=== PATIENT | male | born 1945 | race Caucasian/White ===

== ENCOUNTER 2020-11-23 13:11 | Emergency (ER) | payer MEDICARE, OTHER ==
[~2020-11-23 13:11] MED LIST: ACETAZOLAMIDE250 MG PO; AMIODARONE HCL200 MG PO; AMITIZA8 MCG PO; ASPIRIN EC81 MG PO; BUMEX 1MG TABLET1 MG PO; COLACE 100MG C100 MG PO; DIVALPROEX SOD125 M1 PO; ELIQUIS5 MG PO; FINASTERIDE5 MG PO; FLOMAX 0.4 MG0.4 MG PO; FLONASE 0.05% N16 GM; GABAPENTIN100 MG PO; HYDRALAZINE HC100 MG PO; IPRAT-ALBUT 0.5-3 ML INH; LEVAQUIN500 MG PO; LEVEMIR100 UNIT/1 SQ; LOPRESSOR 25 MG25 MG PO; METOPROLOL TART50 MG PO; NOVOLOG 10100 UNITS/ INJ; NOVOLOG 10100 UNITS/ SQ; OMNICEF 300 MG300 MG PO; PANTOPRAZOLE SO40 MG PO; POLYETHYLENE GL17 GM PO; ROPINIROLE HCL2 MG PO; TYLENOL 500 MG500 MG PO; TYLENOL WITH C1 EACH PO; VIREAD 300 MG300 MG PO; ZYRTEC10 MG PO
[2020-11-23 14:07] LABS: HEMOGLOBIN 8.9 gm/dl (14.0-17.5); RED BLOOD COUNT 3.63 M/UL (4.20-5.50); WHITE BLOOD COUNT 6.4 K/UL (4.5-11.0)
[2020-11-23 14:46] LABS: BUN/CREATININE RATIO 16 (0-10)
[2020-11-23] MEDS ORDERED: OMNICEF 300 MG300 MG PO (17:59)
[2021-05-12] MEDS ORDERED: OMNICEF 300 MG300 MG PO (17:09)
[2021-05-13] MEDS ORDERED: REQUIP5 MG PO (11:29)
[2021-05-13] MEDS ORDERED: DOCUSATE SODIU250 MG PO (11:33)
== END 2020-11-23 20:56 | disposition home or self-care (01) ==
LOC: ER1 13:11
PROVIDERS: Nurse Practitioner
DX: N20.1 Calculus of ureter (principal); N39.0 Urinary tract infection, site not specified; N28.89 Other specified disorders of kidney and ureter; R60.0 Localized edema; S41.111A Laceration without foreign body of right upper arm, initial encounter; I13.0 Hypertensive heart and chronic kidney disease with heart failure and stage 1 through stage 4 chronic kidney disease, or unspecified chronic kidney disease; E11.22 Type 2 diabetes mellitus with diabetic chronic kidney disease; N18.9 Chronic kidney disease, unspecified; I50.9 Heart failure, unspecified; J44.9 Chronic obstructive pulmonary disease, unspecified; I48.91 Unspecified atrial fibrillation; I25.2 Old myocardial infarction; Z79.82 Long term (current) use of aspirin; Z79.01 Long term (current) use of anticoagulants; Z86.19 Personal history of other infectious and parasitic diseases; X58.XXXA Exposure to other specified factors, initial encounter; Z20.822 Contact with and (suspected) exposure to COVID-19
CPT/HCPCS: 36415; 71045; 80053; 81001; 82550; 82553; 83605; 83690; 83735; 83880; 84484; 85025; 87040; 87077; 87086; 87186; 96374; 99285; J0696; U0002

== ENCOUNTER 2020-11-25 03:29 | Emergency (ER) | payer MEDICARE, OTHER ==
[2020-11-25 04:04] LABS: HEMOGLOBIN 8.9 gm/dl (14.0-17.5); RED BLOOD COUNT 3.63 M/UL (4.20-5.50); WHITE BLOOD COUNT 7.5 K/UL (4.5-11.0)
[2020-11-25 04:28] LABS: BUN/CREATININE RATIO 20 (0-10)
[2020-11-25] MEDS ORDERED: FLOMAX0.4 MG PO (06:21)
[2020-11-25] MEDS ORDERED: OMNICEF 300 MG300 MG PO (06:21)
[2021-05-12] MEDS ORDERED: OMNICEF 300 MG300 MG PO (17:09)
[2021-05-13] MEDS ORDERED: REQUIP5 MG PO (11:29)
[2021-05-13] MEDS ORDERED: DOCUSATE SODIU250 MG PO (11:33)
== END 2020-11-25 09:00 | disposition home or self-care (01) ==
LOC: ER1 03:29
PROVIDERS: Emergency Medicine
DX: N13.2 Hydronephrosis with renal and ureteral calculous obstruction (principal); J45.909 Unspecified asthma, uncomplicated; E11.9 Type 2 diabetes mellitus without complications; I48.91 Unspecified atrial fibrillation
CPT/HCPCS: 80053; 81001; 85025; 87040; 87086; 99284

== ENCOUNTER 2020-12-06 03:10 | Inpatient (IN) | payer MEDICARE, OTHER ==
[~2020-12-06] VITALS: Ht 175.3 cm; Wt 131.5 kg
[~2020-12-06 03:10] MED LIST changes: +FLOMAX0.4 MG PO
[2020-12-06 04:06] LABS: HEMOGLOBIN 8.2 gm/dl (14.0-17.5); RED BLOOD COUNT 3.38 M/UL (4.20-5.50); WHITE BLOOD COUNT 4.6 K/UL (4.5-11.0)
[2020-12-06 04:37] LABS: BUN/CREATININE RATIO 23 (0-10)
[2020-12-06] MEDS ORDERED: NORVASC5 MG PO (11:24)
[2020-12-06] MEDS ORDERED: ASPIRIN81 MG PO (11:26)
[2020-12-07 04:14] LABS: HEMOGLOBIN 8.4 gm/dl (14.0-17.5); RED BLOOD COUNT 3.46 M/UL (4.20-5.50)
[2020-12-07 04:15] LABS: WHITE BLOOD COUNT 6.4 K/UL (4.5-11.0)
[2020-12-08 07:51] LABS: HEMOGLOBIN 8.5 gm/dl (14.0-17.5); RED BLOOD COUNT 3.66 M/UL (4.20-5.50); WHITE BLOOD COUNT 10.9 K/UL (4.5-11.0)
[2020-12-09] MEDS ORDERED: NOVOLOG 10100 UNITS/ INJ (12:27)
[2020-12-09] MEDS ORDERED: TYLENOL W/CODEIN1 EA PO (12:27)
--- NOTE | 2020-12-09 16:33 | NUR ---
REPORT CALLED TO [facility] 5
[2020-12-10 03:31] LABS: HEMOGLOBIN 7.9 gm/dl (14.0-17.5); WHITE BLOOD COUNT 8.7 K/UL (4.5-11.0)
[2020-12-10 03:37] LABS: RED BLOOD COUNT 3.26 M/UL (4.20-5.50)
[2020-12-11 05:09] LABS: HBSAG SCREEN Positive (Negative); HEP A AB, IGM Negative (Negative); HEP B CORE AB, IGM Negative (Negative); HEP C VIRUS AB <0.1 (0.0-0.9)
[2020-12-12 03:28] LABS: BUN/CREATININE RATIO 22 (0-10)
[2020-12-12 15:41] LABS: BUN/CREATININE RATIO 20 (0-10)
[2020-12-14 00:49] LABS: ACINETOBACTER BAUMANNII Not Detected (Negative); CANDIDA ALBICANS Not Detected (Negative); CANDIDA KRUSEI Not Detected (Negative); CANDIDA TROPICALIS Not Detected (Negative); ENTEROCOCCUS Not Detected (Negative); ESCHERICHIA COLI Not Detected (Negative); HAEMOPHILUS INFLUENZAE Not Detected (Negative); KLEBSIELLA OXYTOCA Not Detected (Negative); KLEBSIELLA PNEUMONIAE Not Detected (Negative); KPC-CARBAPENEM-RESISTANCE GENE Not Detected (Negative); PROTEUS Not Detected (Negative); PSEUDOMONAS AERUGINOSA Not Detected (Negative); SERRATIA MARCESANS Not Detected (Negative); STAPHYLOCOCCUS AUREUS Not Detected (Negative); STREP AGALACTIAE (GROUP B) Not Detected (Negative); STREP PYOGENES (GROUP A) Not Detected (Negative); STREPTOCOCCUS Not Detected (Negative); vanA/B (VANCOMYCIN RESIST GENE Not Detected (Negative)
[2020-12-14 02:51] LABS: mecA (METHICILLIN RESIST GENE DETECTED (Negative)
[2020-12-14 02:55] LABS: STAPHYLOCOCCUS DETECTED (Negative)
[2020-12-14 03:13] LABS: HEMOGLOBIN 8.1 gm/dl (14.0-17.5); RED BLOOD COUNT 3.31 M/UL (4.20-5.50); WHITE BLOOD COUNT 8.8 K/UL (4.5-11.0)
[2020-12-14 03:38] LABS: BUN/CREATININE RATIO 18 (0-10)
[2020-12-15 06:05] LABS: BUN/CREATININE RATIO 19 (0-10)
[2020-12-16 04:36] LABS: HEMOGLOBIN 8.4 gm/dl (14.0-17.5); RED BLOOD COUNT 3.41 M/UL (4.20-5.50); WHITE BLOOD COUNT 7.9 K/UL (4.5-11.0)
[2020-12-16 04:57] LABS: BUN/CREATININE RATIO 20 (0-10)
[2020-12-17 02:50] LABS: HEMOGLOBIN 9.4 gm/dl (14.0-17.5); WHITE BLOOD COUNT 8.4 K/UL (4.5-11.0)
[2020-12-17 02:58] LABS: RED BLOOD COUNT 3.81 M/UL (4.20-5.50)
[2020-12-17 03:06] LABS: BUN/CREATININE RATIO 18 (0-10)
--- NOTE | 2020-12-17 16:04 | NUR ---
ATTEMPTED DOBHOFF PLACEMENT X3. XRAY AT BEDSIDE SHOWED DOBHOFF CURLING BACK TOWARDS THE THROAT. GOT APPROVAL FROM DR VALENZUELA TO TRY NG TUBE INSTEAD. AWAITING XRAY AT THIS TIME TO VERIFY NG PLACEMENT.
--- NOTE | 2020-12-17 20:04 | NUR ---
UPON ASSESSMENT, NG TUBE TO RIGHT NARE HOOKED UP TO LOW-INTERMITTENT WALL SUCTION. NO ISSUES DETECTED.
[2020-12-18 03:24] LABS: HEMOGLOBIN 9.1 gm/dl (14.0-17.5); RED BLOOD COUNT 3.7 M/UL (4.20-5.50); WHITE BLOOD COUNT 9.2 K/UL (4.5-11.0)
[2020-12-18 04:17] LABS: BUN/CREATININE RATIO 23 (0-10)
[2020-12-19 02:48] LABS: HEMOGLOBIN 9.2 gm/dl (14.0-17.5); RED BLOOD COUNT 3.76 M/UL (4.20-5.50)
[2020-12-19 02:53] LABS: WHITE BLOOD COUNT 12.2 K/UL (4.5-11.0)
[2020-12-19 03:15] LABS: BUN/CREATININE RATIO 22 (0-10)
[2020-12-20 02:35] LABS: HEMOGLOBIN 8.6 gm/dl (14.0-17.5); RED BLOOD COUNT 3.5 M/UL (4.20-5.50); WHITE BLOOD COUNT 11.5 K/UL (4.5-11.0)
[2020-12-20 02:51] LABS: BUN/CREATININE RATIO 21 (0-10)
[2020-12-21 06:17] LABS: HEMOGLOBIN 8.7 gm/dl (14.0-17.5); RED BLOOD COUNT 3.55 M/UL (4.20-5.50); WHITE BLOOD COUNT 9.2 K/UL (4.5-11.0)
[2020-12-21 06:36] LABS: BUN/CREATININE RATIO 19 (0-10)
[2020-12-22 06:14] LABS: HEMOGLOBIN 8.7 gm/dl (14.0-17.5); RED BLOOD COUNT 3.57 M/UL (4.20-5.50); WHITE BLOOD COUNT 7.3 K/UL (4.5-11.0)
[2020-12-22 06:36] LABS: BUN/CREATININE RATIO 22 (0-10)
[2020-12-24] MEDS ORDERED: MEROPENEM500 MG IV (11:17)
[2021-05-12] MEDS ORDERED: OMNICEF 300 MG300 MG PO (17:09)
[2021-05-13] MEDS ORDERED: REQUIP5 MG PO (11:29)
[2021-05-13] MEDS ORDERED: DOCUSATE SODIU250 MG PO (11:33)
== END 2020-12-24 21:30 | DRG 177 ==
LOC: ER1 03:10 → PROG CARE 08:42 → CDU 08:42 → M/S 08:42 → PROG CARE 17:29 → M/S 12-09 17:07
PROVIDERS: Emergency Medicine; Internal Medicine; Internal Medicine Pulmonary Disease; ADMIT Internal Medicine
PROC: 0DH67UZ Insertion of Feeding Device into Stomach, Via Natural or Artificial Opening (ICD-10-PCS; principal; 2020-12-17)
PROC: 3E0G76Z Introduction of Nutritional Substance into Upper GI, Via Natural or Artificial Opening (ICD-10-PCS; 2020-12-17)
DX: J15.5 Pneumonia due to Escherichia coli (principal); J96.21 Acute and chronic respiratory failure with hypoxia; J96.22 Acute and chronic respiratory failure with hypercapnia; I50.33 Acute on chronic diastolic (congestive) heart failure; G93.41 Metabolic encephalopathy; J44.1 Chronic obstructive pulmonary disease with (acute) exacerbation; I13.0 Hypertensive heart and chronic kidney disease with heart failure and stage 1 through stage 4 chronic kidney disease, or unspecified chronic kidney disease; B19.10 Unspecified viral hepatitis B without hepatic coma; N39.0 Urinary tract infection, site not specified; E66.2 Morbid (severe) obesity with alveolar hypoventilation; G93.1 Anoxic brain damage, not elsewhere classified; E87.2 Acidosis; J44.0 Chronic obstructive pulmonary disease with (acute) lower respiratory infection; J98.11 Atelectasis; E87.3 Alkalosis; K76.0 Fatty (change of) liver, not elsewhere classified; I73.9 Peripheral vascular disease, unspecified; K59.09 Other constipation; G62.9 Polyneuropathy, unspecified; Z20.822 Contact with and (suspected) exposure to COVID-19; N40.0 Benign prostatic hyperplasia without lower urinary tract symptoms; J20.9 Acute bronchitis, unspecified; D69.6 Thrombocytopenia, unspecified; I10 Essential (primary) hypertension; E11.9 Type 2 diabetes mellitus without complications; G25.81 Restless legs syndrome; E11.22 Type 2 diabetes mellitus with diabetic chronic kidney disease; N18.30 Chronic kidney disease, stage 3 unspecified; H91.90 Unspecified hearing loss, unspecified ear; F39 Unspecified mood [affective] disorder; I25.10 Atherosclerotic heart disease of native coronary artery without angina pectoris; E88.09 Other disorders of plasma-protein metabolism, not elsewhere classified; B96.20 Unspecified Escherichia coli [E. coli] as the cause of diseases classified elsewhere; R31.9 Hematuria, unspecified; K72.90 Hepatic failure, unspecified without coma; E87.6 Hypokalemia; E78.5 Hyperlipidemia, unspecified; D72.829 Elevated white blood cell count, unspecified; I48.0 Paroxysmal atrial fibrillation; Z79.01 Long term (current) use of anticoagulants; I25.2 Old myocardial infarction; Z90.49 Acquired absence of other specified parts of digestive tract; Z87.891 Personal history of nicotine dependence; Z80.9 Family history of malignant neoplasm, unspecified; Z82.49 Family history of ischemic heart disease and other diseases of the circulatory system; Z95.820 Peripheral vascular angioplasty status with implants and grafts; Z79.82 Long term (current) use of aspirin; Z79.899 Other long term (current) drug therapy; Z79.4 Long term (current) use of insulin; Z87.11 Personal history of peptic ulcer disease
CPT/HCPCS: 0240U; 36415; 36600; 70450; 70551; 71045; 74018; 80048; 80053; 80074; 80202; 81001; 82140; 82550; 82553; 82803; 82962; 83036; 83605; 83615; 83735; 83874; 83880; 84100; 84132; 84439; 84443; 84484; 85018; 85025; 85027; 86140; 87040; 87070; 87077; 87081; 87086; 87150; 87186; 87205; 92526; 92610; 93005; 93880; 94640; 94660; 94664; 94760; 94762; 96365; 96367; 96372; 96375; 96376; 99285; A6212; C1751; J0696; J0713; J1120; J1205; J1650; J1940; J2020; J2185; J2405; J2543; J2920; J3370; J3480; J7070; U0002

== ENCOUNTER 2021-05-13 13:55 | Inpatient (IN) | payer MEDICARE, OTHER ==
[~2021-05-13] VITALS: Ht 185.4 cm; Wt 115.2 kg
[~2021-05-13 13:55] MED LIST changes: +ASPIRIN81 MG PO; +DOCUSATE SODIU250 MG PO; +MEROPENEM500 MG IV; +NORVASC5 MG PO; +REQUIP5 MG PO; +TYLENOL W/CODEIN1 EA PO
[2021-05-13 15:12] LABS: HEMOGLOBIN 8.7 gm/dl (14.0-17.5); RED BLOOD COUNT 3.42 M/UL (4.20-5.50); WHITE BLOOD COUNT 6.4 K/UL (4.5-11.0)
[2021-05-13] MEDS ORDERED: GERI-LANTA LIQ355 M1 PO (17:05)
[2021-05-13] MEDS ORDERED: FERROUS SULFAT325 MG PO (17:06)
[2021-05-13] MEDS ORDERED: HYDROCODON-ACE1 EAC2 PO (17:07)
[2021-05-13] MEDS ORDERED: SYMBICORT 160-1 INHA INH (17:07)
[2021-05-13] MEDS ORDERED: NEURONTIN100 MG PO (17:08)
[2021-05-13] MEDS ORDERED: AMITIZA8 MCG PO (17:09)
[2021-05-13] MEDS ORDERED: LOPRESSOR 25 MG25 MG PO (17:11)
[2021-05-13] MEDS ORDERED: NOVOLOG 10100 UNITS1 INJ (17:14)
[2021-05-13] MEDS ORDERED: THERA-M TABLET1 EACH PO (17:19)
[2021-05-13] MEDS ORDERED: LEVOTHYROXINE150 MC1 PO (17:20)
[2021-05-13] MEDS ORDERED: LIPITOR TAB 2020 MG PO (21:09)
[2021-05-13] MEDS ORDERED: LACTULOSE20 GM/30 M PO (21:28)
[2021-05-14 05:04] LABS: HEMOGLOBIN 9.1 gm/dl (14.0-17.5); RED BLOOD COUNT 3.57 M/UL (4.20-5.50)
[2021-05-14 05:05] LABS: WHITE BLOOD COUNT 10.7 K/UL (4.5-11.0)
[2021-05-15 03:51] LABS: HEMOGLOBIN 8.4 gm/dl (14.0-17.5); RED BLOOD COUNT 3.33 M/UL (4.20-5.50)
[2021-05-15 03:53] LABS: WHITE BLOOD COUNT 6.1 K/UL (4.5-11.0)
[2021-05-16 05:30] LABS: HEMOGLOBIN 7.8 gm/dl (14.0-17.5); WHITE BLOOD COUNT 6.1 K/UL (4.5-11.0)
[2021-05-16 05:40] LABS: BUN/CREATININE RATIO 12 (0-10)
[2021-05-17 03:56] LABS: HEMOGLOBIN 8.7 gm/dl (14.0-17.5); RED BLOOD COUNT 3.38 M/UL (4.20-5.50); WHITE BLOOD COUNT 10.1 K/UL (4.5-11.0)
[2021-05-17 04:18] LABS: BUN/CREATININE RATIO 17 (0-10)
[2021-05-18 04:54] LABS: HEMOGLOBIN 7.5 gm/dl (14.0-17.5)
[2021-05-18 05:02] LABS: RED BLOOD COUNT 2.84 M/UL (4.20-5.50); WHITE BLOOD COUNT 6.7 K/UL (4.5-11.0)
[2021-05-18 05:17] LABS: BUN/CREATININE RATIO 17 (0-10)
[2021-05-19 05:25] LABS: HEMOGLOBIN 7.1 gm/dl (14.0-17.5); RED BLOOD COUNT 2.78 M/UL (4.20-5.50); WHITE BLOOD COUNT 5.5 K/UL (4.5-11.0)
[2021-05-19 05:53] LABS: BUN/CREATININE RATIO 18 (0-10)
[2021-05-20 04:13] LABS: HEMOGLOBIN 7.3 gm/dl (14.0-17.5); RED BLOOD COUNT 2.78 M/UL (4.20-5.50)
[2021-05-20 04:33] LABS: BUN/CREATININE RATIO 23 (0-10)
--- NOTE | 2021-05-21 03:15 | NUR ---
2139 DOBHOFF REPLACED D/T INABILITY TO FLUSH MEDS. XRAY OBTAINED AT 2141. RESULTS RECIEVED AT 0126 STATING FEEDING TUB TIP OVER THE GASTIC BODY. [facility] CALLED AT 0128, INFORMATION RECIVED VIA PHONE THAT THE TUBE IS NOT IN THE CORRECT POSITION A ADDENDUM WOULD BE SENT. ADDENDUM RECIEVED AT 0240 STATING TUBE SHOULD BE ADVANCED TO PROXIMAL DUODENUM APPROXIMATELY 16CM. DOBHOFF ADVANCED AND NEW XRAY OBTIANED AWAITING RESULTS.
[2021-05-21 05:28] LABS: RED BLOOD COUNT 2.68 M/UL (4.20-5.50); WHITE BLOOD COUNT 6.8 K/UL (4.5-11.0)
[2021-05-21 05:46] LABS: BUN/CREATININE RATIO 23 (0-10)
[2021-05-21 15:15] LABS: HEPARIN INDUCED PLATELET AB 0.072 OD (0.000-0.400)
[2021-05-21 17:11] LABS: HEMOGLOBIN 8.2 gm/dl (14.0-17.5)
[2021-05-22 05:37] LABS: HEMOGLOBIN 7.5 gm/dl (14.0-17.5); RED BLOOD COUNT 2.83 M/UL (4.20-5.50)
[2021-05-22 06:00] LABS: BUN/CREATININE RATIO 24 (0-10)
[2021-05-23 04:31] LABS: HEMOGLOBIN 8.2 gm/dl (14.0-17.5); RED BLOOD COUNT 3.03 M/UL (4.20-5.50); WHITE BLOOD COUNT 6.7 K/UL (4.5-11.0)
[2021-05-23 05:08] LABS: BUN/CREATININE RATIO 26 (0-10)
[2021-05-24 03:14] LABS: HEMOGLOBIN 7.6 gm/dl (14.0-17.5); RED BLOOD COUNT 2.95 M/UL (4.20-5.50); WHITE BLOOD COUNT 7.7 K/UL (4.5-11.0)
[2021-05-24 03:47] LABS: BUN/CREATININE RATIO 26 (0-10)
[2021-05-26 03:06] LABS: HEMOGLOBIN 7.9 gm/dl (14.0-17.5); RED BLOOD COUNT 2.93 M/UL (4.20-5.50)
[2021-05-26 03:25] LABS: BUN/CREATININE RATIO 26 (0-10)
[2021-05-26] MEDS ORDERED: SULFAMETHOXAZO1 EACH PO (13:59)
[2021-05-26] MEDS ORDERED: HYDROCODON-ACE1 EAC2 PO ×2 (16:12→16:53)
[2021-05-27 02:52] LABS: HEMOGLOBIN 7.8 gm/dl (14.0-17.5); RED BLOOD COUNT 2.87 M/UL (4.20-5.50)
[2021-05-27 03:06] LABS: BUN/CREATININE RATIO 20 (0-10)
--- NOTE | 2021-05-27 13:13 | NUR ---
patient to be discharged to [facility] [place]. report called to [facility] jail request patient keep hernández in place to aid with healing of the unstageable pressure ulcer to the coccyx. patient admitted with this wound the jail staff is aware
== END 2021-05-27 14:45 | DRG 871 ==
LOC: ER1 13:55 → PROG CARE 16:00 → CCU 16:00 → CDU 16:00 → CCU 20:27 → PROG CARE 05-22 16:34
PROVIDERS: Internal Medicine; Internal Medicine Pulmonary Disease; Physician Assistant Medical; Preventive Medicine Occupational Medicine; ADMIT Internal Medicine
PROC: 3E033XZ Introduction of Vasopressor into Peripheral Vein, Percutaneous Approach (ICD-10-PCS; principal; 2021-05-13)
PROC: 0BH18EZ Insertion of Endotracheal Airway into Trachea, Via Natural or Artificial Opening Endoscopic (ICD-10-PCS; 2021-05-16)
PROC: 5A1945Z Respiratory Ventilation, 24-96 Consecutive Hours (ICD-10-PCS; 2021-05-16)
PROC: 5A1945Z Respiratory Ventilation, 24-96 Consecutive Hours (ICD-10-PCS; 2021-05-18)
PROC: 0BH18EZ Insertion of Endotracheal Airway into Trachea, Via Natural or Artificial Opening Endoscopic (ICD-10-PCS; 2021-05-18)
PROC: 0B9F8ZX Drainage of Right Lower Lung Lobe, Via Natural or Artificial Opening Endoscopic, Diagnostic (ICD-10-PCS; 2021-05-19)
PROC: 0BD68ZX Extraction of Right Lower Lobe Bronchus, Via Natural or Artificial Opening Endoscopic, Diagnostic (ICD-10-PCS; 2021-05-19)
PROC: 30233N1 Transfusion of Nonautologous Red Blood Cells into Peripheral Vein, Percutaneous Approach (ICD-10-PCS; 2021-05-21)
DX: A41.51 Sepsis due to Escherichia coli [E. coli] (principal); R65.21 Severe sepsis with septic shock; J96.21 Acute and chronic respiratory failure with hypoxia; Z20.822 Contact with and (suspected) exposure to COVID-19; G93.41 Metabolic encephalopathy; J15.6 Pneumonia due to other Gram-negative bacteria; J96.22 Acute and chronic respiratory failure with hypercapnia; N17.9 Acute kidney failure, unspecified; I13.0 Hypertensive heart and chronic kidney disease with heart failure and stage 1 through stage 4 chronic kidney disease, or unspecified chronic kidney disease; I50.32 Chronic diastolic (congestive) heart failure; B19.10 Unspecified viral hepatitis B without hepatic coma; E87.0 Hyperosmolality and hypernatremia; N30.00 Acute cystitis without hematuria; Z16.12 Extended spectrum beta lactamase (ESBL) resistance; E87.6 Hypokalemia; D69.6 Thrombocytopenia, unspecified; L89.152 Pressure ulcer of sacral region, stage 2; E86.0 Dehydration; E03.9 Hypothyroidism, unspecified; G25.81 Restless legs syndrome; G89.29 Other chronic pain; K59.00 Constipation, unspecified; F03.90 Unspecified dementia, unspecified severity, without behavioral disturbance, psychotic disturbance, mood disturbance, and anxiety; K21.9 Gastro-esophageal reflux disease without esophagitis; E11.22 Type 2 diabetes mellitus with diabetic chronic kidney disease; N18.30 Chronic kidney disease, stage 3 unspecified; E11.40 Type 2 diabetes mellitus with diabetic neuropathy, unspecified; N40.0 Benign prostatic hyperplasia without lower urinary tract symptoms; E11.51 Type 2 diabetes mellitus with diabetic peripheral angiopathy without gangrene; I48.0 Paroxysmal atrial fibrillation; I25.10 Atherosclerotic heart disease of native coronary artery without angina pectoris; K76.0 Fatty (change of) liver, not elsewhere classified; E78.5 Hyperlipidemia, unspecified; Z90.89 Acquired absence of other organs; Z95.5 Presence of coronary angioplasty implant and graft; I25.2 Old myocardial infarction; Z79.82 Long term (current) use of aspirin; Z90.49 Acquired absence of other specified parts of digestive tract; Z79.01 Long term (current) use of anticoagulants; Z98.890 Other specified postprocedural states; Z79.899 Other long term (current) drug therapy; Z87.891 Personal history of nicotine dependence; Z82.49 Family history of ischemic heart disease and other diseases of the circulatory system; Z80.8 Family history of malignant neoplasm of other organs or systems
CPT/HCPCS: 31500; 36415; 36430; 36600; 71045; 74018; 74230; 80048; 80053; 80307; 81001; 82550; 82553; 82607; 82803; 82962; 83605; 83690; 83735; 83874; 83880; 84132; 84439; 84443; 84484; 85014; 85018; 85025; 85027; 85610; 85652; 86140; 86850; 86900; 86901; 86920; 87040; 87070; 87077; 87086; 87186; 87205; 92526; 92610; 92611-GN; 93005; 94003; 94640; 94660; 94664; 94760; 96374; 97110-GP-CQ; 97161; 97167; 97530; 99285; A6212; C9113; J0330; J0696; J1335; J1940; J2185; J2250; J2704; J3480; J7030; J7040; J7050; J7070; P9016; P9047; U0002

== ENCOUNTER 2021-05-29 11:20 | Inpatient (IN) | payer MEDICARE, OTHER ==
[~2021-05-29] VITALS: Ht 185.4 cm; Wt 117.9 kg
[~2021-05-29 11:20] MED LIST changes: +FERROUS SULFAT325 MG PO; +GERI-LANTA LIQ355 M1 PO; +HYDROCODON-ACE1 EAC2 PO; +LACTULOSE20 GM/30 M PO; +LEVOTHYROXINE150 MC1 PO; +LIPITOR TAB 2020 MG PO; +NEURONTIN100 MG PO; +NOVOLOG 10100 UNITS1 INJ; +SULFAMETHOXAZO1 EACH PO; +SYMBICORT 160-1 INHA INH; +THERA-M TABLET1 EACH PO
[2021-05-29 12:00] LABS: HEMOGLOBIN 8.4 gm/dl (14.0-17.5); RED BLOOD COUNT 3.09 M/UL (4.20-5.50); WHITE BLOOD COUNT 3.7 K/UL (4.5-11.0)
[2021-05-29] MEDS ORDERED: GERI-LANTA LIQ355 M1 PO (22:34)
[2021-05-29] MEDS ORDERED: THERAPEUTIC-M1 EACH PO (22:37)
[2021-05-29] MEDS ORDERED: BACTRIM 400-801 EACH PO (22:39)
[2021-05-30 03:46] LABS: HEMOGLOBIN 7.9 gm/dl (14.0-17.5); RED BLOOD COUNT 2.95 M/UL (4.20-5.50)
[2021-05-30 04:00] LABS: BUN/CREATININE RATIO 22 (0-10)
[2021-05-31 03:48] LABS: HEMOGLOBIN 8.2 gm/dl (14.0-17.5); RED BLOOD COUNT 3.06 M/UL (4.20-5.50); WHITE BLOOD COUNT 3.7 K/UL (4.5-11.0)
[2021-05-31 04:13] LABS: BUN/CREATININE RATIO 19 (0-10)
[2021-05-31] MEDS ORDERED: HYDROCODON-ACE1 EAC2 PO (16:49)
[2021-06-01 04:46] LABS: HEMOGLOBIN 8.4 gm/dl (14.0-17.5); RED BLOOD COUNT 3.11 M/UL (4.20-5.50)
[2021-06-01 05:22] LABS: BUN/CREATININE RATIO 15 (0-10)
[2021-06-01] MEDS ORDERED: K-DUR TAB 20 M20 MEQ PO (08:55)
[2021-06-01] MEDS ORDERED: MYCOSTATIN100000 UTS PO (08:55)
[2021-06-01] MEDS ORDERED: ASPIRIN EC81 MG PO (08:55)
[2021-06-01] MEDS ORDERED: ACETAZOLAMIDE250 MG PO (08:55)
[2021-06-01] MEDS ORDERED: NYSTOP60 GM EXT (08:55)
[2021-06-01] MEDS ORDERED: AUGMENTIN 875-1 EACH PO (08:59)
[2021-06-01] MEDS ORDERED: DEX4 GLUCOSE4 GM PO (09:04)
== END 2021-06-01 14:45 | DRG 91 ==
LOC: ER1 11:20 → PROG CARE 16:08 → CDU 16:08 → PROG CARE 18:31
PROVIDERS: Physician Assistant; ADMIT Internal Medicine
DX: R47.81 Slurred speech (principal); G93.41 Metabolic encephalopathy; N13.30 Unspecified hydronephrosis; J98.11 Atelectasis; B19.10 Unspecified viral hepatitis B without hepatic coma; I50.32 Chronic diastolic (congestive) heart failure; N17.9 Acute kidney failure, unspecified; R53.1 Weakness; Z20.822 Contact with and (suspected) exposure to COVID-19; R33.9 Retention of urine, unspecified; R13.19 Other dysphagia; E87.6 Hypokalemia; I25.10 Atherosclerotic heart disease of native coronary artery without angina pectoris; N40.0 Benign prostatic hyperplasia without lower urinary tract symptoms; E66.01 Morbid (severe) obesity due to excess calories; L89.322 Pressure ulcer of left buttock, stage 2; L89.312 Pressure ulcer of right buttock, stage 2; L89.152 Pressure ulcer of sacral region, stage 2; F44.4 Conversion disorder with motor symptom or deficit; E03.9 Hypothyroidism, unspecified; K76.0 Fatty (change of) liver, not elsewhere classified; E11.22 Type 2 diabetes mellitus with diabetic chronic kidney disease; G25.81 Restless legs syndrome; I73.9 Peripheral vascular disease, unspecified; E11.40 Type 2 diabetes mellitus with diabetic neuropathy, unspecified; N18.9 Chronic kidney disease, unspecified; I48.0 Paroxysmal atrial fibrillation; Z79.82 Long term (current) use of aspirin; Z87.01 Personal history of pneumonia (recurrent); Z87.440 Personal history of urinary (tract) infections; Z79.01 Long term (current) use of anticoagulants; Z87.891 Personal history of nicotine dependence; Z68.34 Body mass index [BMI] 34.0-34.9, adult
CPT/HCPCS: 36415; 36600; 51702; 70450; 70551; 71045; 72141; 80048; 80053; 81001; 82140; 82550; 82553; 82803; 82962; 83605; 83735; 83874; 84132; 84484; 84550; 85025; 85610; 85730; 86140; 87040; 87086; 92507; 93005; 94640; 94760; 96374; 96375; 96376; 97162; 99285; G0378; J0696; J2185; J3480; J7050; U0002